=== PATIENT | female | born 1950 | race Caucasian/White ===

== ENCOUNTER 2018-12-15 14:07 | Emergency (ER) | payer MEDICARE, BC ==
--- OUTSIDE RECORDS SUMMARY | 2018-12-15 14:11 | XMS REPORT | Continuity of Care Document ---
:1950 External Reference #:[id number] Author Name Georgiana Coffey O.D. Address [address] [place] [address] Care Team Providers Name Role Phone Tiburcio Guzman M.D. Primary Care Physician Unavailable Payers Date Identification Numbers Payment Provider Subscriber Policy Number: [id number] Medicare - [facility] Fariba Bray PayID: [id number] [address] [place] [address] Policy Number: [id number] [facility] Dieter Bray PayID: [id number] [address] [address] [place] [address] Advance Directives Description No Information Available Problems Active Problems Provider Date History of malignant neoplasm of bladder Onset: Hearing loss Onset: Allergic contact dermatitis of eyelid Georgiana Coffey O.D. Onset: 12/10/2018 Family History Date Family Member(s) Observation Comments Father No Current Problems Mother No Current Problems Aunt Glaucoma Social History Type Date Description Comments Sex Unknown Marital Status Legal Status: Occupation [employer] Work Status Retired ETOH Use Denies alcohol use Tobacco Use Start: Unknown Patient has never smoked Smoking Status Reviewed: 12/10/18 Patient has never smoked Allergies, Adverse Reactions, Alerts Description No Known Drug Allergies Medications Active Medications SIG Qnty Indications Ordering Date Provider Neomycin/Polymyxin/ apply to upper and 3.500gm H01.111 Georgiana Coffey, Dexamethasone lower eyelids of O.D. both eyes before [id number] bed for 1 weeks, Ointment then discontinue Artificial Tears as needed rarely Georgiana Coffey, 12/09/2018 O.D. 1.4% Solution Claritin as needed Unknown 5mg Chewtabs Immunizations Description No Information Available Vital Signs Description No Information Available Results Description No Information Available Procedures Description No Information Available Encounters Description No Information Available Plan of Treatment 12/10/2018 - Georgiana Coffey O.D.H01.111 Allergic dermatitis of right upper eyelidNew Medication:Neomycin/Polymyxin/Dexamethasone [id number] - apply to upper and lower eyelids of both eyes before bed for 1 weeks, then discontinueComments:Smoking can increase the risk of developing or worsening any eye related disease, as well as affect your overall health. If you are a smoker, we strongly recommend that you quit.If you are not a smoker, we strongly recommend that you do not start. use cool compresses as needed for swelling start tobradex ointment before bed around both eyelids use artificial tears as needed, at least 4 times a dayif your symptoms persist, please call the office to be seenFollow up:as [id number] Allergic dermatitis of left upper eyelid
[2018-12-15 14:15] VITALS: BP 131/78
[2018-12-15 14:46] LABS: Influenza A Molecular NEGATIVE (Negative); Influenza B Molecular NEGATIVE (Negative)
--- NOTE | 2018-12-15 14:57 | UC ---
Respiratory Complaint HPI - HPI Summary HPI Summary: 68 yo female with < 2 day hx of f/c, myalgias, runny nose and cough no n/v/d - History of Current Complaint Chief Complaint: UCGeneralIllness Stated Complaint: FEVER Time Seen by Provider: 12/15/18 14:40 Hx Obtained From: Patient Onset/Duration: Gradual Onset, Lasting Days Timing: Constant Severity Initially: Mild Severity Currently: Moderate Pain Intensity: 8 Pain Scale Used: 0-10 Numeric Character: Cough: Nonproductive Aggravating Factors: Nothing Alleviating Factors: Nothing Associated Signs And Symptoms: Positive: Fever, Chills, URI, Nasal Congestion - Allergies/Home Medications Allergies/Adverse Reactions: Allergies Allergy/AdvReac Type Severity Reaction Status Date / Time No Known Allergies Allergy Verified 12/15/18 14:15 Home Medications: Home Medications Acetaminophen [Mapap] 1,000 mg PO ONCE PRN 12/15/18 [History Confirmed 12/15/18] Pseudoephedrine HCl [Sudafed] 30 mg PO DAILY PRN 12/15/18 [History Confirmed ] PMH/Surg Hx/FS Hx/Imm Hx Previously Healthy: Yes Cancer History: Other Other Cancer History: bladder - Surgical History Surgical History: Yes Surgery Procedure, Year, and Place: 40 YRS AGO; Left middle finger trigger finger surgery;. bladder surgery x3 - Social History Alcohol Use: None Substance Use Type: None Smoking Status (MU): Never Smoked Tobacco Review of Systems All Other Systems Reviewed And Are Negative: Yes Constitutional: Positive: Fever, Chills, Fatigue Skin: Positive: Negative Eyes: Positive: Negative ENT: Positive: Nasal Discharge, Sinus Congestion Respiratory: Positive: Cough Cardiovascular: Positive: Negative Gastrointestinal: Positive: Negative Genitourinary: Positive: Negative Motor: Positive: Negative Neurovascular: Positive: Negative Musculoskeletal: Positive: Myalgia Neurological: Positive: Negative Psychological: Positive: Negative Physical Exam Triage Information Reviewed: Yes Appearance: Well-Appearing, No Pain Distress, Well-Nourished Vital Signs: Initial Vital Signs Temp 101.6 F 12/15/18 14:10 Pulse 93 12/15/18 14:10 Resp 18 12/15/18 14:10 BP 131/78 12/15/18 14:10 Pulse Ox 97 12/15/18 14:10 Vital Signs Reviewed: Yes Eyes: Positive: Conjunctiva Clear ENT: Positive: Hearing grossly normal, Nasal congestion, Nasal drainage. Negative: Trismus, Muffled voice, Hoarse voice, Sinus tenderness Neck: Positive: Supple, Nontender, No Lymphadenopathy Respiratory: Positive: Lungs clear, Normal breath sounds, No respiratory distress, No accessory muscle use, Respiratory distress Cardiovascular: Positive: RRR, No Murmur Abdomen Description: Positive: Nontender, No Organomegaly. Negative: CVA Tenderness (R), CVA Tenderness (L) Musculoskeletal: Positive: ROM Intact, No Edema Neurological Exam: Normal Neurological: Positive: Alert Psychological Exam: Normal Skin Exam: Normal Diagnostics - Radiology No standard instances Radiology Interpretation Completed By: Radiologist Summary of Radiographic Findings: CXR: NAD Respiratory Course/Dx - Course Course Of Treatment: influenza (-) - Differential Dx/Diagnosis Provider Diagnosis: Viral URI with cough Discharge - Sign-Out/Discharge Documenting (check all that apply): Patient Departure All imaging exams completed and their final reports reviewed: Yes - Discharge Plan Condition: Stable Disposition: HOME Prescriptions: Benzonatate CAP* [Tessalon CAP*] 100 - 200 mg PO TID PRN #28 cap PRN Reason: Cough Fluticasone NASAL SPRAY 50MCG* [Flonase NASAL SPRAY 50MCG*] 2 spray BOTH NARES BID #1 btl Patient Education Materials: Upper Respiratory Infection (ED) Referrals: Humble Pride MD [Primary Care Provider] - 3 Days (if not better ) Additional Instructions: rest fluids tylenol recheck for worsening symptoms or if not better in 2-3 days - Billing Disposition and Condition Condition: STABLE Disposition: Home
[2018-12-15] MEDS ORDERED: Acetaminophen TAB* 325 MG PO ONE (15:35)
== END 2018-12-15 15:45 | disposition home or self-care (01) ==
LOC: UCEAST 14:07
DX: J06.9 Acute upper respiratory infection, unspecified (principal); R05 Cough; R50.9 Fever, unspecified; Z85.51 Personal history of malignant neoplasm of bladder
CPT/HCPCS: 71046; 99202; A9270-GY; G0463